=== PATIENT | male | born 1980 | race Hispanic/Latino ===

== ENCOUNTER 2020-03-10 16:09 | Inpatient (IN) | payer OTHER ==
[~2020-03-10 16:09] MED LIST: Iopamidol 370 76% 100 ML VIAL ONE; Magnevist 469MG/ML 20 ML VIAL ONE
[2020-03-10 16:28] LABS: #Basophils 0.1 thou/uL (0.0-0.2); #Eosinphils 1.4 thou/uL (0.0-0.7); #Monocytes 0.5 thou/uL (0.11-0.59); #Neutrophils 4.9 thou/uL (1.40-6.50); %Basophils 0.5 % (0.0-1.0); %Eosinophils 13.9 % (0.0-10.0); %Lymphocytes 30.4 % (21.0-51.0); %Monocytes 4.9 % (0.0-10.0); %Neutrophils 50.2 % (42.0-75.0); Hemoglobin 14.8 g/dL (14.0-18.0); Mean Corpuscular HGB CONC 34.5 g/dL (32.0-36.0); Mean Corpuscular Hemoglobin 30.7 pg (27.0-31.0); Mean Corpuscular Volume 88.9 fL (78.0-98.0); Mean Platelet Volume 6.8 fL (7.4-10.4); Platelet Count 346 thou/uL (130-400); RBC Distribution Width 12.2 % (11.5-14.5); Red Blood Cell (RBC) Count 4.81 mill/uL (4.70-6.10); White Blood Cell (WBC) Count 9.8 thou/uL (4.8-10.8)
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
[2020-03-10 16:47] LABS: ALT (SGPT) 15 U/L (8-55); AST (SGOT) 28 U/L (5-34); Albumin 4.3 g/dL (3.5-5.0); Alcohol Less than 10 mg/dL (Less than 10); Alkaline Phosphatase 96 U/L (40-110); Anion Gap 14 mmol/L (10-20); BUN (Urea Nitrogen) 23 mg/dL (8.9-20.6); Bilirubin, Total 0.6 mg/dL (0.2-1.2); Calc. Creatinine Clearance 0 mL/min (70-130); Calcium 9.3 mg/dL (7.8-10.44); Carbon Dioxide 21 mmol/L (22-29); Chloride 108 mmol/L (98-107); Estimated GFR-MDRD 66; Globulin 3.6 g/dL (2.4-3.5); Glucose 98 mg/dL (70-105); Potassium 3.9 mmol/L (3.5-5.1); Protein, Total 7.9 g/dL (6.0-8.3); Sodium 139 mmol/L (136-145)
[2020-03-10] MEDS ORDERED: Morphine 4 MG/ML VIAL ONE ×2 (16:57→20:13)
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
--- NOTE | 2020-03-10 18:44 | MRI ---
MRI of thecervical spine with and without contrast: 03/10/2020 COMPARISON:None HISTORY:Acute cervical spine injury seen on recent CT, trauma TECHNIQUE: Multiplanar multisequence MR imaging of thecervical spine with and without contrast Findings:The sagittal STIR imaging demonstrates extensive abnormal increased T2 signal on the basis o f edema posterior to the spinous processes at the C2, C3, C4, C5, and C6 levels with fluid signal intensity in the region of the interspinous ligament at C2-3 through C6-7 consistent with extensive l igamentous disruption. There is traumatic anterolisthesis at C6-7 measuring approximately 5-6 mm. There is disruption of the anterior and posterior longitudinal ligament at C6-7 with traumatic edema anterior to the C7 and T1 vertebral bodies. There is a focal area of disruption involving the posterior aspect of the thecal sac at the C6-7 level. Evaluation of the cervical cord demonstrates no definitive evidence for increased T2 signal to sugges t an acute cervical cord injury. The axial gradient echo imaging demonstrates no evidence for hemorrhage within the cervical cord. C2-3: No significant central canal or neural foraminal stenosis C3-4: No significant central canal or neural foraminal stenosis C4-5: Minimal disc bulge with mild central canal stenosis. No significant neural foraminal stenosis. C5-6: Mild disc osteophyte complex in the right paracentral region with no significant central canal or neural foraminal stenosis. C6-7: There is disc space narrowing with mild anterior disc herniation. There appears to be a traumat ic C6-7 disc herniation with superior migration posterior to the C6 vertebral body which measures approximately 4 mm in craniocaudal dimension and approximately 4 mm in AP dimension. There is associa lamonte mild central canal stenosis. There is partial subluxation of the right facet joint at C6-7. There is an anteriorly dislocated facet joint on the left at C6-7. There is a fracture of the left C7 superior articular facet and left spinous process, better assessed on recent CT examination. There is a small fracture fragment in the region of the left neural foramen with associated mild left neura l foraminal stenosis. C7-T1: No significant central canal or neural foraminal stenosis. The postcontrast imaging demonstrates no abnormal enhancement involving the contents of the thecal sa c, the imaged osseous structures, or the intervertebral discs. IMPRESSION:Extensive posterior ligamentous injury involving interspinous ligaments from C2-3 through C6-7. At the C6-7 level there is disruption of the anterior and posterior longitudinal ligament with traumatic anterolisthesis and bilateral acute C6-7 facet injury as above. Left-sided C7 fracture s, better assessed on recent CT. Probable small traumatic disc herniation at C6-7. No evidence for acute cord injury.
[2020-03-10] MEDS ORDERED: Ondansetron PF 4 MG/2 ML Vial IVP PRN (18:53)
[2020-03-10] MEDS ORDERED: Dextrose 5% in Water 1,000 ML IV PRN (18:53)
[2020-03-10] MEDS ORDERED: Dextrose 50% Abboject 50 ML SYRINGE SLOW IVP PRN (18:53)
[2020-03-10] MEDS ORDERED: traMADol HCl 50 MG TAB PO PRN (18:56)
[2020-03-10] MEDS ORDERED: Cyclobenzaprine 10 MG TAB PO PRN (18:57)
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
[2020-03-10 21:47] VITALS: BMI 27.6
[2020-03-10] MEDS: traMADol HCl 50 MG TAB PO SCH (22:35)
[2020-03-10] MEDS: Ibuprofen 600 MG TAB PO SCH (22:36)
[2020-03-10] MEDS: Acetaminophen 500 MG TAB PO SCH (22:36)
[2020-03-10] MEDS: Gabapentin 300 MG CAP PO SCH (22:36)
[2020-03-10] MEDS: Famotidine 20 MG TAB PO SCH (22:37)
[2020-03-11] MEDS: Morphine 2 MG/ML VIAL SLOW IVP PRN ×2 (00:50→06:44)
[2020-03-11] MEDS: Lactated Ringer's 1,000 ML IV SCH ×2 (00:55→15:09)
[2020-03-11] MEDS: Acetaminophen 500 MG TAB PO SCH ×4 (05:07→23:35)
[2020-03-11] MEDS: traMADol HCl 50 MG TAB PO SCH ×4 (05:07→23:35)
[2020-03-11] MEDS: Ibuprofen 600 MG TAB PO SCH ×3 (05:08→21:36)
[2020-03-11 05:32] LABS: #Basophils 0.1 thou/uL (0.0-0.2); #Eosinphils 0.7 thou/uL (0.0-0.7); #Lymphocytes 2.2 thou/uL (1.20-3.40); #Monocytes 0.7 thou/uL (0.11-0.59); #Neutrophils 5.7 thou/uL (1.40-6.50); %Basophils 0.6 % (0.0-1.0); %Lymphocytes 23.3 % (21.0-51.0); %Monocytes 7.5 % (0.0-10.0); %Neutrophils 60.5 % (42.0-75.0); Hemoglobin 14.2 g/dL (14.0-18.0); Mean Corpuscular HGB CONC 33.4 g/dL (32.0-36.0); Mean Corpuscular Hemoglobin 29.8 pg (27.0-31.0); Mean Corpuscular Volume 89.2 fL (78.0-98.0); Mean Platelet Volume 6.9 fL (7.4-10.4); Platelet Count 362 thou/uL (130-400); RBC Distribution Width 12.2 % (11.5-14.5); Red Blood Cell (RBC) Count 4.78 mill/uL (4.70-6.10); White Blood Cell (WBC) Count 9.4 thou/uL (4.8-10.8)
[2020-03-11 05:54] LABS: Anion Gap 13 mmol/L (10-20); BUN (Urea Nitrogen) 20 mg/dL (8.9-20.6); Calc. Creatinine Clearance 104 mL/min (70-130); Calcium 9.1 mg/dL (7.8-10.44); Carbon Dioxide 21 mmol/L (22-29); Chloride 106 mmol/L (98-107); Estimated GFR-MDRD 74; Glucose 103 mg/dL (70-105); Phosphorus 3.9 mg/dL (2.3-4.7); Potassium 3.8 mmol/L (3.5-5.1); Sodium 136 mmol/L (136-145)
[2020-03-11 08:14] LABS: SARS-CoV-2 NAA Rapid Test Not Detected (NotDetected)
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
[2020-03-11] MEDS: Senokot S 8.6-50 MG TAB PO SCH ×2 (08:52→20:47)
[2020-03-11] MEDS: Gabapentin 300 MG CAP PO SCH ×2 (08:52→20:47)
[2020-03-11] MEDS: Famotidine 20 MG TAB PO SCH ×2 (08:52→20:47)
[2020-03-11] MEDS ORDERED: Fentanyl 100 MCG/2 ML VIAL ONE ×3 (09:25→12:37)
[2020-03-11] MEDS ORDERED: Midazolam HCl 2 mg/2 ml Vial ONE ×2 (09:25→10:19)
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
[2020-03-11] MEDS ORDERED: Promethazine HCl 25 MG/ML VIAL IM PRN (11:46)
[2020-03-11] MEDS ORDERED: Promethazine HCl 25 MG/ML VIAL SLOW IVP PRN (11:46)
[2020-03-11] MEDS ORDERED: PACU-Morphine 4MG/ML VIAL SLOW IVP PRN (11:46)
[2020-03-11] MEDS ORDERED: Ondansetron HCl/PF 4 MG/2 ML Vial IVP PRN (11:46)
--- NOTE | 2020-03-11 12:24 | OP ---
DATE OF PROCEDURE: 03/11/2020 REVENUE STAMPER: Trenton Waite PA-C INDICATION: Unstable spine. DIAGNOSIS: Fracture dislocation C6-C7 with perched facet and radiculopathy. PROCEDURES PERFORMED: Reduction of fracture at C6-C7 with anterior cervical diskectomy and fusion, placement of allograft, and placement of autograft. ANESTHESIA: General. DESCRIPTION OF PROCEDURE: The patient was brought to the operating room and placed under general anesthesia. He was placed on table in supine position. Using C-arm fluoroscopy, his neck was put under traction until there was reduction of the perched facet on the left side and resumption of normal alignment of the spine. A transverse incision was then planned on the right and then subsequently created, after prepping and draping and an appropriate operative pause. The underlying platysma muscle was identified and incised. A blunt tissue plane anterior to the sternocleidomastoid muscle was used to gain access to the prevertebral space, which was edematous and erythematous. A traumatic disruption of the disk and anterior longitudinal ligament was identified at C6-C7. After placing self-retaining retractors, a disk material as well as anterior and posterior osteophytes were removed. The spinal canal was inspected to look for a posteriorly displaced traumatic disk and none was found. After completing the decompression and ensuring open reduction of the fracture was complete, a 7 mm lordotic PEEK cage packed with allograft and autograft material was placed in the interbody space. A separate anterior cervical plate was then fashioned to the front of the spine and secured with a total of 4 fixed screws. Midline and lateral structures were inspected and found to be free from any surgical trauma. The wound was irrigated. Hemostasis was maintained throughout. The wound was then closed in anatomic layers, and a pressure dressing was applied. There were no known procedural complications. Job ID: [id number]
[2020-03-11] MEDS ORDERED: Ketorolac Tromethamine 30 MG/ML VIAL ONE (13:35)
[2020-03-11] MEDS ORDERED: PROPOFOL 200 MG/20 ML VIAL ONE (13:35)
[2020-03-11] MEDS ORDERED: Glycopyrrolate 0.2 MG/ML 5 ML SYRINGE ONE (13:35)
[2020-03-11] MEDS ORDERED: Dexamethasone 20 MG/5 ML VIAL ONE (13:35)
[2020-03-11] MEDS ORDERED: Ondansetron PF 4 MG/2 ML Vial ONE (13:35)
[2020-03-11] MEDS ORDERED: Lidocaine 1% PF 5 ML VIAL ONE (13:35)
[2020-03-11] MEDS ORDERED: Rocuronium Bromide 10 MG/ML (10ML VIAL) ONE (13:35)
[2020-03-11] MEDS ORDERED: traMADol HCl 50 MG TAB PO PRN (13:50)
[2020-03-11] MEDS ORDERED: Acetaminophen 325 MG TAB PO PRN (13:50)
[2020-03-11] MEDS ORDERED: diphenhydrAMINE 50 MG/ML VIAL IVP PRN (13:50)
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
[2020-03-11] MEDS: CEFAZOLIN 2 GM in Premix Bag 1 BAG IVPB SCH (18:18)
[2020-03-11] MEDS ORDERED: FLU VACC QS2020-21(6MOS UP)/PF 60 MCG/0.5 ML SYRINGE IM ONE (21:00)
[2020-03-12] MEDS: CEFAZOLIN 2 GM in Premix Bag 1 BAG IVPB SCH (02:32)
[2020-03-12] MEDS: Ibuprofen 600 MG TAB PO SCH ×2 (06:12→15:19)
[2020-03-12] MEDS: traMADol HCl 50 MG TAB PO SCH ×2 (06:12→12:06)
[2020-03-12] MEDS: Acetaminophen 500 MG TAB PO SCH ×2 (06:12→12:07)
[2020-03-12] MEDS: Gabapentin 300 MG CAP PO SCH (09:30)
[2020-03-12] MEDS: Famotidine 20 MG TAB PO SCH (09:30)
[2020-03-12] MEDS: Senokot S 8.6-50 MG TAB PO SCH (09:30)
[2020-03-12 12:04] VITALS: TEMP 98.1
[2020-03-12 15:26] VITALS: BP 125/73
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
== END 2020-03-12 17:47 | disposition home or self-care (01) | DRG 473 ==
LOC: ERS 16:09 → SURG A 18:58
PROVIDERS: ADMIT Specialist; ATTEND Specialist
PROC: 0RG10A0 Fusion of Cervical Vertebral Joint with Interbody Fusion Device, Anterior Approach, Anterior Column, Open Approach (ICD-10-PCS; principal; 2020-03-11)
PROC: 0RB30ZZ Excision of Cervical Vertebral Disc, Open Approach (ICD-10-PCS; 2020-03-11)
PROC: 0PS3XZZ Reposition Cervical Vertebra, External Approach (ICD-10-PCS; 2020-03-11)
PROC: 2W6 Placement, Anatomical Regions, Traction (ICD-10-PCS; 2020-03-11)
DX: S12.530A Unspecified traumatic displaced spondylolisthesis of sixth cervical vertebra, initial encounter for closed fracture (principal); S12.630A Unspecified traumatic displaced spondylolisthesis of seventh cervical vertebra, initial encounter for closed fracture; Z20.828 Contact with and (suspected) exposure to other viral communicable diseases; V89.2XXA Person injured in unspecified motor-vehicle accident, traffic, initial encounter
CPT/HCPCS: 36415; 70450; 70498; 71045; 71260; 72125; 72156; 74177; 76000; 80048; 80053; 80307; 83735; 84100; 85025; 87635; 93005; 96374; 96376; A9579; C1713; C1776; G0390; J0690; J1100; J1885; J2250; J2270; J2405; J2704; J3010; Q9967; U0002; U0003

== ENCOUNTER 2020-03-26 11:11 | Outpatient (CLI) | payer SELFPAY ==
--- NOTE | 2020-03-26 13:50 | RAD ---
CERVICAL SPINE SERIES 3 VIEWS: Date: 03/26/2020 HISTORY: Cervical spine fracture. COMPARISON: 03/10/2020 CT study. FINDINGS: Postoperative changes are now seen with anterior cervical fusion at the C6-7 level. Disc implant is within the confines of the disc level. The facets appear to be in normal alignment. IMPRESSION: Postoperative changes of the spine. POS: DIANE
== END 2020-03-26 11:12 | disposition home or self-care (01) ==
LOC: TBSIIMAG 11:11
PROVIDERS: ATTEND Neurological Surgery
DX: Z47.89 Encounter for other orthopedic aftercare (principal); Z98.890 Other specified postprocedural states
CPT/HCPCS: 72040

== ENCOUNTER 2021-03-21 08:50 | Emergency (ER) | payer SELFPAY ==
[2021-03-21] MEDS ORDERED: Boostrix 0.5 ML (Tdap) VIAL ONE (09:07)
[2021-03-21] MEDS ORDERED: Lidocaine 1% w/Epinephrine 1:100K 20 ML VIAL ONE (09:07)
[2021-03-21] MEDS ORDERED: HYDROcodone/Acetaminophen 5/325 mg Tablet ONE (09:07)
== END 2021-03-21 10:55 | disposition home or self-care (01) ==
LOC: ERS 08:50
DX: S81.812A Laceration without foreign body, left lower leg, initial encounter (principal); Z23 Encounter for immunization; W27.0XXA Contact with workbench tool, initial encounter
CPT/HCPCS: 12004; 90471; 90715